=== PATIENT | male | born 1960 | race Hispanic/Latino ===

== ENCOUNTER 2016-10-29 18:44 | Inpatient (IN) | payer OTHER, MEDICARE ==
[2016-10-29 18:44] VITALS: BMI 22.2
[2016-10-29 19:02] VITALS: O2SAT 96
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
[2016-10-29 20:00] LABS: ADD MANUAL DIFF? NO
[2016-10-29 20:17] LABS: ALB/GLOB RATIO 2.1 (1.1-1.8); ALKALINE PHOSPHATASE 71 U/L (38-133); ALT/SGPT 27 U/L (7-56); AST/SGOT 21 U/L (15-59); BILIRUBIN,TOTAL 0.5 mg/dL (0.2-1.3); BLOOD UREA NITROGEN 13 mg/dL (7-21); CALCIUM 9.1 mg/dL (8.4-10.5); CARBON DIOXIDE 25 mmol/L (21-33); CHLORIDE 107 mmol/L (95-110); GFR AFRICAN-AMERICAN > 60; GLUCOSE,RANDOM 132 mg/dL (70-110); POTASSIUM 3.3 mmol/L (3.6-5.0); SODIUM 141 mmol/L (132-148)
[2016-10-29 20:30] LABS: BASO # 0.04 K/mm3 (0.0-2.0); EOS # 0.1 (0.0-0.7); EOS % 2.6 % (1.5-5.0); GRAN # 1.94 (1.4-6.5); GRAN % 50.4 % (50.0-68.0); LYMPH # 1.5 (1.2-3.4); MEAN CELL VOLUME 87.7 fL (80.0-105.0); MEAN CORPUSCULAR HEMOGLOBIN 31.4 pg (25.0-35.0); MEAN CORPUSCULAR HGB CONC 35.8 g/dl (31.0-37.0); MEAN PLATELET VOLUME 10.6 fl (7.0-11.0); MONO # 0.3 (0.1-0.6); PLATELET COUNT 138 10^3/uL (120.0-450.0); RED CELL DISTRIBUTION WIDTH 14.7 % (11.5-14.5); WHITE BLOOD COUNT 3.9 10^3/ul (4.5-11.0)
[2016-10-29 21:23] LABS: URINE BILIRUBIN NEGATIVE (NEGATIVE); URINE BLOOD NEGATIVE (NEGATIVE); URINE GLUCOSE (UA) NEGATIVE (NEGATIVE); URINE KETONE NEGATIVE (NEGATIVE); URINE LEUKOCYTE ESTERASE NEGATIVE Leu/uL (NEGATIVE); URINE PROTEIN NEGATIVE mg/dL (<30 mg/dL); URINE UROBILINOGEN 0.2 E.U./dL (<1 E.U./dL)
[2016-10-29 21:24] LABS: URINE APPEARANCE CLEAR (CLEAR); URINE COLOR YELLOW (YELLOW)
[2016-10-29] MEDS ORDERED: Potassium Chloride 20 mEq ER Tab PO STA (22:21)
[2016-10-29] MEDS ORDERED: Alum-Mag Hydrox-Simethicone Susp (30 mL) PO PRN (23:32)
[2016-10-29] MEDS ORDERED: Magnesium Hydroxide Susp 30 ml UD PO PRN (23:32)
[2016-10-30] MEDS ORDERED: QUEtiapine 200 mg XR Tab PO STA (00:20)
[2016-10-30 07:45] LABS: CHOLESTEROL 97 mg/dL (130-200)
[2016-10-30] MEDS: QUEtiapine 200 mg XR Tab PO SCH ×5 (08:12→22:02)
--- NOTE | 2016-10-30 10:15 | RAD ---
HISTORY: pes eval COMPARISON: 02/23/2016 FINDINGS: LUNGS: No active pulmonary disease. PLEURA: No significant pleural effusion identified, no pneumothorax apparent. CARDIOVASCULAR: Normal. OSSEOUS STRUCTURES: No significant abnormalities. VISUALIZED UPPER ABDOMEN: Normal. OTHER FINDINGS: None. IMPRESSION: No active disease.
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
--- NOTE | 2016-10-30 15:21 | CARD ---
APPROVED REPORT EKG Measurement Heart [id number] <Conclusion> Normal sinus rhythm Normal ECG
[2016-10-30] MEDS ORDERED: QUEtiapine 200 mg XR Tab PO ONE (23:53)
[2016-10-31] MEDS: QUEtiapine 200 mg XR Tab PO SCH ×5 (06:13→21:11)
--- NOTE | 2016-10-31 10:27 | PCM.PYCHPN ---
Psychiatric Progress Note - Psychiatric Progress Note Patient seen today, length of contact: 25 min Problems Identified/Issues Discussed: I reviewed assessment and met with patient at bedside. He is calm and superficially cooperative. Oriented to month, year and location. Reports that he is feeling "good" and denies any new concerns. Taniya has been tolerating medicaitons and denies s/e. Has been labile on the unit and perseverative about the timing of his medication doses. Denies AVH and paranoid delusions were not elicited during this first visit. He doesn't appear hypervigilant or overtly disorganized. He is not responding to internal stimuli. Still refuses to retract his 48 hour letter. Diagnostic Results: Rule out chronic paranoid schizophrenia Rule out polysubstance abuse Rule out somatic symptoms disorder Medication Change: No Medical Record Reviewed: Yes (reports, labs, vitals, notes) Mental Status Examination - Cognitive Function Orientation: Person, Place, Situation, Time - Mood Mood: Anxious - Affect Affect: Constricted - Formal Thought Process Formal Thought Process: Hallucinations, Delusions, Paranoia - Homicidal Ideation Homicidal Ideation: No Goal/Treatment Plan - Goal/Treatment Plan Progress Toward Problem(s) and Goals/Treatment Plan: * c/w current tx and plan * No new weekend labs * Vitals reviewed and noted below: Selected Entries 10/30/16 10/30/16 07:42 19:54 Temperature 97.9 F Pulse Rate 66 67 Respiratory 20 20 Rate Blood Pressure 109/69 110/65 * Will discuss patient's disposition with Dr. Rodriguez to further determine treatment course.
[2016-11-01] MEDS: QUEtiapine 200 mg XR Tab PO SCH ×2 (06:10→10:11)
[2016-11-01 08:18] VITALS: BP 109/76; PULSE 70; RESP 20; TEMP 97.3
--- NOTE | 2016-11-01 23:14 | CON ---
DATE: 11/01/2016 HISTORY OF PRESENT ILLNESS: The patient is a 56-year-old male admitted with auditory hallucinations and paranoia and anxiety. He has history of schizophrenia. Blood count showed leukopenia. Denies any abdominal pain, no nausea, no vomiting. He has a history of TIA in the past. No symptoms consistent with TIA during this admission. PAST MEDICAL HISTORY: TIA, schizophrenia, anxiety, depression, Parkinson disease, history of urinary retention. PAST SURGICAL HISTORY: Knee surgery 10 years ago, vasectomy. FAMILY HISTORY: Noncontributory. No positive history in mother or father. PERSONAL HISTORY: Heavy smoker, smokes more than 10 cigarettes a day. No history of alcohol abuse. No history of IV drug abuse. SOCIAL HISTORY: Lives at home. ALLERGIES: AMITRIPTYLINE CAUSES RASH, ZYPREXA CAUSES SHORTNESS OF BREATH, PENICILLIN ALLERGY, TRAZODONE CAUSES RASH. HOME MEDICATIONS: Seroquel 200 mg p.o. 5 times a day, Valium 10 mg 4 times a day. REVIEW OF SYSTEMS: As per HPI. Rest of 12-point review of systems reviewed and negative. PHYSICAL EXAMINATION: GENERAL: Curled up in the bed, in no acute distress. VITAL SIGNS: Temperature 98.6, heart rate 100 per minute, blood pressure 120/77 , pulse ox is 97% on room air, respiratory rate 15 per minute. HEENT: Normal. Oral mucosa moist. NECK: No lymphadenopathy. CHEST: Air entry present, equal bilateral. No added sound. CARDIOVASCULAR: S1, S2 normal. No murmur, no gallop. ABDOMEN: Soft, nontender, no hepatosplenomegaly. EXTREMITIES: No edema. CENTRAL NERVOUS SYSTEM: Alert, oriented x 3, no focal sensorimotor deficit. LABORATORY DATA: Show white count 3.9, hemoglobin 14.3, hematocrit 40.0, platelet count 138. Sodium 141, potassium 3.3, BUN 13, creatinine 0.9, calcium 9.1, total bilirubin 0.5. ASSESSMENT: 1. Schizophrenia. 2. Auditory hallucination. 3. Leukopenia. 4. History of transient ischemic attack. 5. History of Parkinson disease. PLAN: Continue Tylenol 650 q. 4 hours p.r.n., Valium 10 mg p.o. 4 times a day, antipsychotic medication as per primary team. He is complaining of constipation. Lactulose can be tried 30 mL p.r.n. He has a history of TIA, no such complaints now. Leukopenia likely related to medications, seroquel. We can continue to monitor blood counts. He is currently stable. Thank you, Dr. Rodriguez, for allowing us to participate in the patient's care. Annamaria Talbot MD cc: [id number] TT: 11/01/2016 23:13:14 Confirmation # [id number] Dictation # [id number] [id number]
--- NOTE | 2016-11-02 05:52 | PCM.PYCHDC ---
Mental Status Examination - Mental Status Examination Orientation: Person, Place, Situation Memory: Intact Mood: Neutral Affect: Broad Speech: Appropriate Attention: WNL Concentration: WNL Association: Loose Fund of Knowledge: WNL Formal Thought Process: No Impairment Description of patient's judgement and insight: fair I/J Psychotic Thoughts and Behaviors: denies AVH and overt delusions were not elicited Suicidal Ideation: No Current Homicidal Ideation?: No Discharge Summary - Discharge Note Reason for Hospitalization: PER DR. ROMERO'S HPI Mr. Hunt has been under my care since January 2010 at which time I saw him in consultation. 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 This necessitated that he be hospitalized at [facility]. This appeared to be in his early 40s. He denied a prior psychiatric or substance abuse history Presently however he is indicating that he has been paranoid a good part of his life. He denies a history of substance use although he used cocaine in his early 20s and again in his 40s At that time he admitted to hearing voices At that time. She a Dr. [place]valle[place] he is giving the name of a different psychiatrist, Dr. GREGORIO over the briseyda An Saymaurilio. is pyciatrist had maitained hi n 60m and thus he had beenha at age 29 [facility] [facility] 21 [facility] years of marriage her parents prevailed upon her to break up that marriage and he was heard over the situation. r of yeas calm it is realy 40s he his resent wif,a c 3 years his senior and who has worked cleaning houses in [place] At that time he wasiven the diagnosis of rule out bipolar disorder, rulet sedative hypnotic dependence, rule out other sub time the patient has been hospitalized several times at [facility] thought appears to be paranoid events. He appears to be medication seeking I had last seen in my office on 10/08 He was being maintained pharmacologically on Valium 10 mg 5 times per da and Seroquel 400 mg a.m. and at bedtimestance abuse Related seen them he reportedly was maintained on Risperdal 3 mg twice a day an Zyrexa 10 mg d. gumaro headley then to he post office time had personal busto and is reynagermaine Patrick Thepatient is a ativeth [employer] collge or 2 yearsb letto beome a brke He for the first time manjeet e to [place]' intheir luggage Departm and orkedin thatoccupatio fo -9 yars. Hehoweverfound this too stessful n swithed , pesently tthe Prozac 20 mg and trazodone up to 450 mg a day. With this was nothelpful eha been hanged Elavil 0 mg zeb smiley Laboratory Data: Laboratory Tests 10/29/16 10/29/16 10/29/16 19:50 19:50 19:50 WBC 3.9 L D RBC 4.56 Hgb 14.3 Hct 40.0 L MCV 87.7 MCH 31.4 MCHC 35.8 RDW 14.7 H Plt Count 138 MPV 10.6 Gran % 50.4 Lymph % (Auto) 39.0 H Cotton % (Auto) 7.0 H Eos % (Auto) 2.6 Baso % (Auto) 1.0 Gran # 1.94 Lymph # 1.5 Cotton # 0.3 Eos # 0.1 Baso # 0.04 Sodium 141 Potassium 3.3 L Chloride 107 Carbon Dioxide 25 Anion Gap 12 BUN 13 Creatinine 0.9 Est GFR ( Amer) > 60 Est GFR (Non-Af Amer) > 60 Random Glucose 132 H Calcium 9.1 Total Bilirubin 0.5 AST 21 ALT 27 Alkaline Phosphatase 71 Total Protein 7.0 Albumin 4.7 Globulin 2.2 Albumin/Globulin Ratio 2.1 H Triglycerides Cholesterol LDL Cholesterol Direct HDL Cholesterol TSH 3rd Generation Urine Color Urine Appearance Urine pH Ur Specific [place] Urine Protein Urine Glucose (UA) Urine Ketones Urine Blood Urine Nitrate Urine Bilirubin Urine Urobilinogen Ur Leukocyte Esterase Salicylates < 1 L Urine Opiates Screen Urine Methadone Screen Acetaminophen < 10.0 L Ur Barbiturates Screen Ur Phencyclidine Scrn Ur Amphetamines Screen U Benzodiazepines Scrn U Oth Cocaine Metabols U Cannabinoids Screen Alcohol, Quantitative RPR 10/29/16 10/29/16 10/29/16 19:50 21:10 21:10 WBC RBC Hgb Hct MCV MCH MCHC RDW Plt Count MPV Gran % Lymph % (Auto) Cotton % (Auto) Eos % (Auto) Baso % (Auto) Gran # Lymph # Cotton # Eos # Baso # Sodium Potassium Chloride Carbon Dioxide Anion Gap BUN Creatinine Est GFR ( Amer) Est GFR (Non-Af Amer) Random Glucose Calcium Total Bilirubin AST ALT Alkaline Phosphatase Total Protein Albumin Globulin Albumin/Globulin Ratio Triglycerides Cholesterol LDL Cholesterol Direct HDL Cholesterol TSH 3rd Generation Urine Color Yellow Urine Appearance Clear Urine pH 6.0 Ur Specific [place] 1.020 Urine Protein Negative Urine Glucose (UA) Negative Urine Ketones Negative Urine Blood Negative Urine Nitrate Negative Urine Bilirubin Negative Urine Urobilinogen 0.2 Ur Leukocyte Esterase Negative Salicylates Urine Opiates Screen Negative Urine Methadone Screen Negative Acetaminophen Ur Barbiturates Screen Negative Ur Phencyclidine Scrn Negative Ur Amphetamines Screen Negative U Benzodiazepines Scrn Positive H U Oth Cocaine Metabols Negative U Cannabinoids Screen Negative Alcohol, Quantitative < 10 RPR 10/30/16 10/30/16 10/30/16 07:10 07:10 07:10 WBC RBC Hgb Hct MCV MCH MCHC RDW Plt Count MPV Gran % Lymph % (Auto) Cotton % (Auto) Eos % (Auto) Baso % (Auto) Gran # Lymph # Cotton # Eos # Baso # Sodium Potassium Chloride Carbon Dioxide Anion Gap BUN Creatinine Est GFR ( Amer) Est GFR (Non-Af Amer) Random Glucose Calcium Total Bilirubin AST ALT Alkaline Phosphatase Total Protein Albumin Globulin Albumin/Globulin Ratio Triglycerides 43 Cholesterol 97 L LDL Cholesterol Direct 25 HDL Cholesterol 63 H TSH 3rd Generation 1.43 Urine Color Urine Appearance Urine pH Ur Specific [place] Urine Protein Urine Glucose (UA) Urine Ketones Urine Blood Urine Nitrate Urine Bilirubin Urine Urobilinogen Ur Leukocyte Esterase Salicylates Urine Opiates Screen Urine Methadone Screen Acetaminophen Ur Barbiturates Screen Ur Phencyclidine Scrn Ur Amphetamines Screen U Benzodiazepines Scrn U Oth Cocaine Metabols U Cannabinoids Screen Alcohol, Quantitative RPR Nonreactive Consultations:: List each consultation separately and include: 1. Reason for request. 2. Findings. 3. Follow-up Consultations: NONE Summary of Hospital Course include:: 1. Description of specific treatment plan utilized for patients during their course of treatmen. 2. Summarize the time- course for resolution of acute symptoms and/or regressed behaviors. 3. Describe issues identified and worked on during hospitalization. 4. Describe medication utilized. 5. Describe medical problems identified and treated. 6. Reassessment of suicide risk Summary of Hospital Course: PER DR. ROMERO'S HPI Mr. Hunt has been under my care since January 2010 at which time I saw him in consultation. 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 This necessitated that he be hospitalized at [facility]. This appeared to be in his early 40s. He denied a prior psychiatric or substance abuse history Presently however he is indicating that he has been paranoid a good part of his life. He denies a history of substance use although he used cocaine in his early 20s and again in his 40s At that time he admitted to hearing voices At that time. She a Dr. Delvalle, [place] he is giving the name of a different psychiatrist, Dr. GREGORIO over the briseyda An Saymaurilio. is pyciatrist had maitained hi n 60m and thus he had beenha at age 29 to a [employer] [facility] 21 [facility] after [facility]/2 years of marriage her parents prevailed upon her to break up that marriage and he was heard over the situation. r of yeas calm it is realy 40s he his resent wif,a c 3 years his senior and who has worked cleaning houses in [place] At that time he wasiven the diagnosis of rule out bipolar disorder, rulet sedative hypnotic dependence, rule out other sub time the patient has been hospitalized several times at [facility] thought appears to be paranoid events. He appears to be medication seeking I had last seen in my office on 10/08 He was being maintained pharmacologically on Valium 10 mg 5 times per da and Seroquel 400 mg a.m. and at bedtimestance abuse Related seen them he reportedly was maintained on Risperdal 3 mg twice a day an Zyrexa 10 mg d. olombin oan isand then to he post office time had personal busto and is ntive Kimowilbert Thepatient is a dat Sotomayor collmichelle or 2 yearsb enid emmanuel a devynke He for the first time manjeet carmona to [place] intheir duncan Depart and orselena thatoccupatio fo -9 yars. Hehoweverfound this too stessful n swithed , pesently tthe Prozac 20 mg and trazodone up to 450 mg a day. With this was nothelpful eha been hanged Elavil 0 mg jonoiveth baljit PROGRESS NOTE ON DAY PRIOR TO DISCHARGE I reviewed assessment and met with patient at bedside. He is calm and superficially cooperative. Oriented to month, year and location. Reports that he is feeling "good" and denies any new concerns. Taniya has been tolerating medicaitons and denies s/e. Has been labile on the unit and perseverative about the timing of his medication doses. Denies AVH and paranoid delusions were not elicited during this first visit. He doesn't appear hypervigilant or overtly disorganized. He is not responding to internal stimuli. Still refuses to retract his 48 hour letter. DISCHARGE NOTE ON DAY OF DISCHARGE. Patient scheduled for discharge today AMA after putting in a 48 hour notice on . Patient seen by [facility] and NOT SCREENED FOR INVOLUNTARY COMMITMENT ON 11/01, Patient reports improvement since his admission and denies having any new concerns. Indicates mood is improved and that he is hopeful. Denies having any wishes, suicidal thoughts or thoughts to harm others. Patient also denies having any perceptual disturbance during today's interview. Patient was not hypervigilant during any of our interviews and paranoid delusions were not elicited. He was not overtly disorganized. Focus and eye contact are good. Patient is fairly related and affect demonstrates moderate range with appropriate reactivity. Overall he feels very comfortable and SAFE with today' s discharge date and after care plans to see Dr. Romero on November 09. Reports he has supply of medications at his home until then. . - Final Diagnosis (DSM 5) Condition upon Discharge: FAIR DSM 5: Chronic paranoid schizophrenia Rule out polysubstance abuse Rule out somatic symptoms disorder Disposition: AGAINST MEDICAL ADVICE Follow-up Treatment Plan: Overall patient feels very comfortable and SAFE with today's discharge date and after care plans to see Dr. Romero on November 09. Reports he has supply of medications at his home until then. . - Smoking Cessation Smoking Cessation Medication prescribed: No - Antipsychotic Medications Pt discharged on 2 or more routine antipsychotic medications: No
== END 2016-11-01 12:48 | disposition left against medical advice (07) | DRG 885 ==
LOC: ED 18:44 → ERH 21:57 → PSYC 22:50
PROVIDERS: ADMIT Psychiatry & Neurology Addiction Medicine; ATTEND Psychiatry & Neurology Addiction Medicine
DX: F20.0 Paranoid schizophrenia (principal); G20 Parkinson's disease; F31.9 Bipolar disorder, unspecified; D72.819 Decreased white blood cell count, unspecified; F17.210 Nicotine dependence, cigarettes, uncomplicated; Z88.0 Allergy status to penicillin; Z86.73 Personal history of transient ischemic attack (TIA), and cerebral infarction without residual deficits

== ENCOUNTER 2018-09-23 22:34 | Emergency (ER) | payer SELFPAY ==
[2018-09-23 22:34] VITALS: BMI 22.2
--- NOTE | 2018-09-23 22:55 | ED PDOC ---
Arrival/HPI - General Chief Complaint: Psychiatric Evaluation Time Seen by Provider: 09/23/18 22:36 Historian: Patient, Family - History of Present Illness Narrative History of Present Illness (Text): 09/23/18 22:55 57 year old male, with past medical history of schizophrenia, presents to emergency department brought in by EMS for reported auditory hallucinations. Family notes non-compliance with psych medications. Patient reports he ran out and states he normally takes seroquel and valium. Patient denies SI. Also denies any fevers, chills, headache, dizziness, chest pain, shortness of breath, cough, abdominal pain, nausea, vomiting, diarrhea, back pain, neck pain, or any other complaints. PMD: Time/Duration: Prior to Arrival Symptom Onset: Gradual Symptom Course: Unchanged Activities at Onset: Light Context: Home Past Medical History - Provider Review Nursing Documentation Reviewed: Yes - Infectious Disease Hx of Infectious Diseases: None - Tetanus Immunization Tetanus Immunization: Up to Date - Past Medical History Past Medical History: No Previous - Cardiac Hx Cardiac Disorders: No - Pulmonary Hx Respiratory Disorders: No - Neurological Hx Neurological Disorder: Yes Hx Parkinson's Disease: Yes Hx Transient Ischemic Attacks (TIA): Yes Other/Comment: adm 11/10/13 TIA - HEENT Hx HEENT Disorder: No - Renal Hx Renal Disorder: No - Endocrine/Metabolic Hx Endocrine Disorders: No - Hematological/Oncological Hx Blood Disorders: No - Integumentary Hx Dermatological Disorder: No - Musculoskeletal/Rheumatological Hx Falls: No - Gastrointestinal Hx Gastrointestinal Disorders: No - Genitourinary/Gynecological Hx Genitourinary Disorders: Yes Other/Comment: URINARY RETENTION - Psychiatric Hx Bipolar Disorder: Yes Hx Schizophrenia: Yes Hx Substance Use: No - Past Surgical History Past Surgical History: No Previous - Surgical History Hx Orthopedic Surgery: Yes Other/Comment: ORTHOSCOPIC R KNEE 10 YRS AGO, VASECTOMY - Anesthesia Hx Anesthesia: Yes - Suicidal Assessment Feels Threatened In Home Enviroment: No Family/Social History - Physician Review Nursing Documentation Reviewed: Yes Family/Social History: Unknown Family HX Smoking Status: Heavy Smoker > 10 Cigarettes Daily Hx Alcohol Use: No Hx Substance Use: No Hx Substance Use Treatment: No Allergies/Home Meds Allergies/Adverse Reactions: Allergies amitriptyline Allergy (Verified 10/30/16 02:39) RASH olanzapine [From Zyprexa] Allergy (Verified 10/30/16 02:39) SHORTNESS OF BREATH Penicillins Allergy (Verified 10/30/16 02:39) RASH trazodone Adverse Reaction (Verified 10/30/16 02:39) RASH pen Allergy (Uncoded 10/30/16 02:39) RASH Home Medications: Home Meds Medication Instructions Recorded Confirmed QUEtiapine [SEROquel XR] 200 mg PO 5XD 10/05/12 10/30/16 diaZEpam [Valium] 10 mg PO QID 10/29/16 10/30/16 Review of Systems - Physician Review All systems were reviewed & negative as marked: Yes - Review of Systems Constitutional: absent: Fevers Respiratory: absent: SOB, Cough Cardiovascular: absent: Chest Pain Gastrointestinal: absent: Abdominal Pain, Diarrhea, Nausea, Vomiting Genitourinary Male: absent: Urinary Output Changes Musculoskeletal: absent: Back Pain, Neck Pain Skin: absent: Rash Neurological: absent: Headache, Dizziness Psychiatric: Other (reported auditory hallucinations ) Physical Exam Vital Signs Reviewed: Yes Temperature: Afebrile Blood Pressure: Normal Pulse: Regular Respiratory Rate: Normal Appearance: Positive for: Well-Appearing, Non-Toxic, Comfortable, Other (unkempt) Pain Distress: None Mental Status: Positive for: Alert and Oriented X 3, other (bizarre affect at bedside ) - Systems Exam Head: Present: Atraumatic, Normocephalic Pupils: Present: PERRL Extroacular Muscles: Present: EOMI Conjunctiva: Present: Normal Mouth: Present: Moist Mucous Membranes Neck: Present: Normal Range of Motion Respiratory/Chest: Present: Clear to Auscultation, Good Air Exchange. No: Respiratory Distress, Accessory Muscle Use Cardiovascular: Present: Regular Rate and Rhythm, Normal S1, S2. No: Murmurs Abdomen: No: Tenderness, Distention, Peritoneal Signs Back: Present: Normal Inspection Upper Extremity: Present: Normal Inspection. No: Cyanosis, Edema Lower Extremity: Present: Normal Inspection. No: Edema Neurological: Present: GCS=15, CN II-XII Intact, Speech Normal Skin: Present: Warm, Dry, Normal Color. No: Rashes Psychiatric: Present: Alert, Oriented x 3, Normal Insight, Normal Concentration Medical Decision Making ED Course and Treatment: 09/23/18 23:18 Impression: 57 year old male presents to emergency department brought in by EMS for reported auditory hallucinations. Plan: -- EKG -- Labs -- Chest X-ray -- Urinalysis -- Reassess and disposition Prior Visits: Notes and results from previous visits were reviewed. Progress Notes: 09/23/18 23:18 EKG: Ordered, reviewed, and independently interpreted the EKG. Rate : 92 BPM Rhythm : NSR Interpretation : No ST-segment elevations or depressions, no T-wave changes 09/24/18 01:02 Patient is attempting to run out of ER, and is making bizarre comments. Patient is being sedated for his own safety and safety of the staff. 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 PES worker evaluated patient and requests [facility] for screening. - RAD Interpretation Radiology Orders: 09/23/18 22:51 CXR [CHEST PORTABLE] [RAD] Stat - Scribe Statement The provider has reviewed the documentation as recorded by the Scribe Monique Back All medical record entries made by the Scribe were at my direction and p ersonally dictated by me. I have reviewed the chart and agree that the record accurately reflects my personal performance of the history, physical exam, medical decision making, and the department course for this patient. I have also personally directed, reviewed, and agree with the discharge instructions and disposition. Disposition/Present on Arrival - Present on Arrival Any Indicators Present on Arrival: No History of DVT/PE: No History of Uncontrolled Diabetes: No Urinary Catheter: No History of Decub. Ulcer: No History Surgical Site Infection Following: None - Disposition Have Diagnosis and Disposition been Completed?: Yes Diagnosis: Hallucination Disposition: Transfer [facility] Disposition Time: 07:00 Condition: GOOD Forms: [employer] (Faroese)
[2018-09-23 23:10] LABS: BASO # 0.04 K/mm3 (0.0-2.0); BASO % 0.5 % (0.0-3.0); EOS % 0.5 % (1.5-5.0); HEMOGLOBIN 14.6 g/dL (14.0-18.0); LYMPH # 1.8 (1.2-3.4); LYMPH % 21.4 % (22.0-35.0); MEAN CELL VOLUME 86.4 fl (80.0-105.0); MEAN CORPUSCULAR HEMOGLOBIN 29.6 pg (25.0-35.0); MEAN CORPUSCULAR HGB CONC 34.2 g/dl (31.0-37.0); MEAN PLATELET VOLUME 10.3 fl (7.0-11.0); MONO # 0.4 (0.1-0.6); MONO % 4.7 % (1.0-6.0); RBC 4.94 10^6/uL (3.5-6.1); RED CELL DISTRIBUTION WIDTH 13.3 % (11.5-14.5); URINE APPEARANCE CLEAR (CLEAR); URINE BILIRUBIN SMALL (NEGATIVE); URINE BLOOD NEGATIVE (NEGATIVE); URINE COLOR YELLOW (YELLOW); URINE GLUCOSE (UA) NEGATIVE (NEGATIVE); URINE LEUKOCYTE ESTERASE NEGATIVE Leu/uL (NEGATIVE); URINE PROTEIN 100 mg/dL (<30 mg/dL); URINE UROBILINOGEN 0.2 E.U./dL (<1 E.U./dL); WHITE BLOOD COUNT 8.4 10^3/uL (4.5-11.0)
[2018-09-23 23:13] LABS: URINE RBC 0 - 2 /hpf (0-2); URINE WBC 0 - 2 /hpf (0-6)
[2018-09-23 23:25] LABS: ACETAMINOPHEN < 10.0 ug/ml (10.0-20.0); SALICYLATE < 1 mg/dL (2.0-20.0)
[2018-09-23 23:26] LABS: ALB/GLOB RATIO 1.6 (1.1-1.8); ALBUMIN 4.9 g/dL (3.0-4.8); ALT/SGPT 29 U/L (7-56); AST/SGOT 33 U/L (17-59); BLOOD UREA NITROGEN 17 mg/dL (7-21); CALCIUM 9.4 mg/dL (8.4-10.5); GFR NON-AFRICAN AMERICAN > 60
[2018-09-23 23:54] LABS: BARBITURATES, UR NEGATIVE (NEGATIVE); BENZODIAZEPINES, UR POSITIVE (NEGATIVE); OPIATES, UR NEGATIVE (NEGATIVE); PHENCYCLIDINE, UR NEGATIVE (NEGATIVE)
[2018-09-24 07:27] VITALS: O2SAT 98
--- NOTE | 2018-09-24 07:36 | ED PDOC ---
Physical Exam Vital Signs Temp Pulse Resp BP Pulse Ox 09/24/18 07:25 98 F 88 18 124/75 98 09/24/18 02:37 112 H 18 128/93 H 95 09/24/18 01:14 120 H 20 168/92 H 98 09/23/18 23:35 97.9 F 89 18 134/81 97 Medical Decision Making ED Course and Treatment: 09/24/18 07:02 Case endorsed to me by Dr. Morejon pending [facility] screening, reassessment, and disposition. - Lab Interpretations Lab Results: Total Bilirubin 0.9 mg/dL (0.2-1.3) 09/23/18 23:03 AST 33 U/L (17-59) 09/23/18 23:03 ALT 29 U/L (7-56) 09/23/18 23:03 Alkaline Phosphatase 122 U/L (38-126) 09/23/18 23:03 Total Protein 7.8 g/dL (5.8-8.3) 09/23/18 23:03 Albumin 4.9 g/dL (3.0-4.8) H 09/23/18 23:03 Globulin 3.0 gm/dL 09/23/18 23:03 Albumin/Globulin Ratio 1.6 (1.1-1.8) 09/23/18 23:03 Urine Color Yellow (YELLOW) 09/23/18 23:03 Urine Appearance Clear (CLEAR) 09/23/18 23:03 Urine pH 6.0 (4.7-8.0) 09/23/18 23:03 Ur Specific [place] >= 1.030 (1.005-1.035) 09/23/18 23:03 Urine Protein 100 mg/dL (<30 mg/dL) H 09/23/18 23:03 Urine Glucose (UA) Negative mg/dL (NEGATIVE) 09/23/18 23:03 Urine Ketones Trace mg/dL (NEGATIVE) H 09/23/18 23:03 Urine Blood Negative (NEGATIVE) 09/23/18 23:03 Urine Nitrate Negative (NEGATIVE) 09/23/18 23:03 Urine Bilirubin Small (NEGATIVE) H 09/23/18 23:03 Urine Urobilinogen 0.2 E.U./dL (<1 E.U./dL) 09/23/18 23:03 Ur Leukocyte Esterase Negative Claribel/uL (NEGATIVE) 09/23/18 23:03 Urine RBC 0 - 2 /hpf (0-2) 09/23/18 23:03 Urine WBC 0 - 2 /hpf (0-6) 09/23/18 23:03 Ur Epithelial Cells None /hpf (0-5) 09/23/18 23:03 Urine HCG, Qual Cancelled 09/23/18 23:03 Urine HCG, Qual Cancelled 09/23/18 23:03 - RAD Interpretation Radiology Orders: 09/23/18 22:51 CXR [CHEST PORTABLE] [RAD] Stat - Medication Orders Current Medication Orders: Discontinued Medications Lorazepam (Ativan) 2 mg IM ONCE ONE; Protocol Stop: 09/24/18 01:03 Last Admin: 09/24/18 01:03 Dose: 2 mg IM Administration Charges Document 09/24/18 01:03 KV (Rec: 09/24/18 01:19 KV [id number]) Injection Site MAR Injection Site Right Vastus Lateralis Charges for Administration # of IM Administrations 1 Ziprasidone (Geodon Inj) 20 mg IM STAT STA; Protocol Stop: 09/24/18 01:03 Last Admin: 09/24/18 01:03 Dose: 20 mg IM Administration Charges Document 09/24/18 01:03 KV (Rec: 09/24/18 01:20 KV [id number]) Injection Site MAR Injection Site Left Vastus Lateralis Charges for Administration # of IM Administrations 1 - Scribe Statement The provider has reviewed the documentation as recorded by the Scribe Bruce Long Provider Scribe Attestation: All medical record entries made by the Scribe were at my direction and personally dictated by me. I have reviewed the chart and agree that the record accurately reflects my personal performance of the history, physical exam, medical decision making, and the department course for this patient. I have also personally directed, reviewed, and agree with the discharge instructions and disposition. Disposition/Present on Arrival - Present on Arrival Any Indicators Present on Arrival: No History of DVT/PE: No History of Uncontrolled Diabetes: No Urinary Catheter: No History of Decub. Ulcer: No History Surgical Site Infection Following: None - Disposition Have Diagnosis and Disposition been Completed?: Yes Diagnosis: Hallucination Disposition: Transfer [facility] Disposition Time: 16:33 (no actual) Condition: GOOD Forms: [employer] (Citizen [place])
--- NOTE | 2018-09-24 10:55 | RAD ---
Date of service: 09/23/2018 HISTORY: carmen COMPARISON: 10/29/2016 TECHNIQUE: 1 view obtained. FINDINGS: LUNGS: No active pulmonary disease. PLEURA: No significant pleural effusion identified, no pneumothorax apparent. CARDIOVASCULAR: No aortic atherosclerotic calcification present. Normal cardiac size. No pulmonary vascular congestion. OSSEOUS STRUCTURES: No significant abnormalities. VISUALIZED UPPER ABDOMEN: Normal. OTHER FINDINGS: None. IMPRESSION: No active disease.
[2018-09-24 12:21] VITALS: BP 128/78; PULSE 78; RESP 18; TEMP 98
--- NOTE | 2018-09-24 19:26 | CARD ---
APPROVED REPORT Date of service: 09/23/2018 EKG Measurement Heart [id number] <Conclusion> Normal sinus rhythm Normal ECG
== END 2018-09-24 12:22 | disposition short-term general hospital (02) ==
LOC: ED 22:34
DX: R44.3 Hallucinations, unspecified (principal); F17.210 Nicotine dependence, cigarettes, uncomplicated; F20.9 Schizophrenia, unspecified; G20 Parkinson's disease; Z86.73 Personal history of transient ischemic attack (TIA), and cerebral infarction without residual deficits
CPT/HCPCS: 71045; 80053; 81001; 83735; 85025; 93005; 96372; 99285; G0480; J2060; J3486